=== PATIENT | female | born 1970 | race Caucasian/White ===

== ENCOUNTER 2019-04-30 23:38 | Observation (INO) ==
[2019-04-30] MEDS ORDERED: methylPREDNISolone 125 MG/2 ML VIAL IVP ONE (23:48)
[2019-04-30] MEDS ORDERED: Ipratropium/Albuterol Neb 3 ML IH ONE (23:48)
[2019-05-01 00:26] LABS: Basophils # 0.1 K/mcL (0.0-0.2); Basophils % 0.4 %; Eosinophils # 0.1 K/mcL (0.0-0.6); Eosinophils % 0.6 %; Hematocrit 38.8 % (35.3-44.9); Hemoglobin 12.8 g/dL (11.5-15.4); Immature Granulocytes % 0.4 % (0-4); Lymphocytes # 2.8 K/mcL (0.6-4.6); Lymphocytes % 20.2 %; Mean Corpuscular Hemoglobin 30.8 pg (28.0-33.3); Mean Corpuscular Volume 93.3 fL (83.0-100.0); Mean Platelet Volume 9.1 fL (9.4-12.4); Monocytes % 7.5 %; Neutrophils # 9.7 K/mcL (1.6-8.9); Platelet Count 461 K/mcL (140-400); Red Blood Count 4.16 M/mcL (3.82-4.97); Red Cell Distribution Width 13.2 % (11.5-14.5); Segmented Neutrophils % 70.9 %; White Blood Count 13.7 K/mcL (4.3-11.1)
[2019-05-01 00:41] LABS: BUN/Creatinine Ratio 24 (6-26); Blood Urea Nitrogen 14 mg/dL (6-20); Calcium 9.3 mg/dL (8.6-10.3); Carbon Dioxide 32 mEq/L (23-29); Chloride 99 mEq/L (98-107); Glucose 114 mg/dL (70-105); Osmolality,Calculated 285 (280-300); Potassium 3.7 mEq/L (3.5-5.1); Sodium 137 mEq/L (136-145); eGFR For African Americans > 60 (> 60); eGFR For Non-African Americans > 60 (> 60)
[2019-05-01] MEDS ORDERED: levoFLOXacin 750 MG/150 ML 750 MG/150 ML BAG IVPB ONE (00:52)
[2019-05-01] MEDS ORDERED: cefTRIAXone 1,000 MG in 0.9 % Sodium Chloride Mini Bag 100 ML IVPB ONE (01:03)
[2019-05-01] MEDS ORDERED: Azithromycin 500 MG in 0.9 % Sodium Chloride 250 ML IVPB SCH ×2 (02:00→03:00)
[2019-05-01] MEDS ORDERED: *HR* Promethazine 25 MG/ML VIAL IVP PRN (02:01)
[2019-05-01] MEDS ORDERED: Naloxone 0.4 MG/ML INJ IVP PRN (02:01)
[2019-05-01] MEDS ORDERED: 0.9 % Sodium Chloride 1,000 ML IVC SCH (02:01)
[2019-05-01 08:19] VITALS: BP 155/82
== END 2019-05-01 14:05 | disposition home or self-care (01) ==
LOC: EMEROOGRE 23:38 → INPGRE 23:38
PROVIDERS: ADMIT Family Medicine; ATTEND Family Medicine